=== PATIENT | male | born 2000 | race Two or more races ===

== ENCOUNTER 2021-07-16 18:16 | Emergency (ER) | payer OTHER ==
[~2021-07-16] VITALS: Ht 170.2 cm; Wt 86.2 kg
[2021-07-16 18:28] VITALS: BP 126/60
[2021-07-16] MEDS ORDERED: LIDOCAINE /MPF 1% VIAL 5 ML VIAL ONE (19:06)
[2021-07-16] MEDS ORDERED: TDAP [DIPH/PERTUSSIS/TET] 0.5 ML VIAL IM ONE ×2 (20:00→20:05)
--- NOTE | 2021-07-16 20:00 | NUR ---
WOUND DRESSING DONE BY FILM RECORDIST.
--- NOTE | 2021-07-16 20:10 | NUR ---
Patient discharged to home in stable condition. Written and verbal after care instructions given. Patient verbalizes understanding of instruction.
== END 2021-07-16 20:12 | disposition home or self-care (01) ==
LOC: ER 18:19
DX: S61.211A Laceration without foreign body of left index finger without damage to nail, initial encounter (principal); W26.0XXA Contact with knife, initial encounter; Y93.89 Activity, other specified; Y92.89 Other specified places as the place of occurrence of the external cause; Y99.8 Other external cause status
CPT/HCPCS: 12001; 90471; 90715; 99283; J3490